=== PATIENT | female | born 1965 | race Caucasian/White ===

== ENCOUNTER 2017-03-22 14:49 | Emergency (ER) | payer BC ==
[2017-03-22 15:40] VITALS: BP 143/72
--- NOTE | 2017-03-22 15:41 | UC ---
Allergic Reaction HPI - HPI Summary HPI Summary: Noticed itchy rash first 10 days ago, started very mild but quickly worsened over 48 hours and went to [facility] 8 days ago with full-body urticaria. Was given 125mg solumedrol, 2 weeks of famotidine, and a pred taper (60, 60, 60, 40 , 40, 40, 20, 20, 20). had full relief for several days, but today symptoms recurred in a full-blown manner. Feels "joint pain" in hands, wrists, and arms to the shoulder, as well as feet and ankles. Mild ST but denies cough, wheezing , fainting, vomiting, or chest pain. No recent illness, no new medications that predated the rash, no new animals, no hx of hives. About 2 months ago did notice small itchy patch of skin that had raised bumps (per were NOT "something you could pop") on L posterior upper rib cage. Pt tried treating it with OTC HCTZ s relief, but area resolved completely with PO steroids. 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 - History of Current Complaint Chief Complaint: [place] Stated Complaint: RASHES OR HIVES,SORE THROAT Time Seen by Provider: 03/22/17 14:55 Hx Obtained From: Patient ?: No Onset/Duration: Gradual Onset, Lasting Hours Severity Initially: Mild Severity Currently: Moderate Location: Diffuse Character: Swelling - bottoms of feet, eyelids, Hives Aggrevating Factor(s): Heat Alleviating Factor(s): Nothing Associated Signs And Symptoms: Positive: Rash. Negative: Chest Pain, Cough Wheezing, Diaphoresis, Hoarseness, Lightheadedness, Syncope, Throat Tightening - Related Hx Possible Reaction To: Unknown - Allergies/Home Medications Allergies/Adverse Reactions: Allergies Allergy/AdvReac Type Severity Reaction Status Date / Time Erythromycin Allergy GI Upset Verified 03/14/17 09:49 Penicillins Allergy Rash Verified 03/14/17 09:49 PMH/Surg Hx/FS Hx/Imm Hx Previously Healthy: Yes - Surgical History Surgical History: Yes Surgery Procedure, Year, and Place: tubal ligation - Family History Known Family History: Negative: Hypertension - Social History Occupation: Employed Full-time Lives: With Family Alcohol Use: None Substance Use Type: None Smoking Status (MU): Former Smoker When Did the Patient Quit Smoking/Using Tobacco: 1985 Review of Systems Constitutional: Negative Skin: Rash Eyes: Negative ENT: Negative Respiratory: Negative Cardiovascular: Negative Gastrointestinal: Negative Genitourinary: Negative Motor: Negative Neurovascular: Negative Musculoskeletal: Arthralgia - arms and feet Neurological: Negative Psychological: Negative All Other Systems Reviewed And Are Negative: Yes Physical Exam Triage Information Reviewed: Yes Appearance: Well-Appearing, No Pain Distress, Well-Nourished Vital Signs: Initial Vital Signs Temp 98.9 F 03/22/17 14:54 Pulse 89 03/22/17 14:54 Resp 18 03/22/17 14:54 BP 143/72 03/22/17 14:54 Pulse Ox 100 03/22/17 14:54 Vital Signs Reviewed: Yes Eye Exam: Normal Eyes: Positive: Conjunctiva Clear ENT: Positive: Normal ENT inspection, Pharynx normal - widely patent, TMs normal. Negative: Nasal drainage, Tonsillar swelling, Tonsillar exudate Dental Exam: Normal Neck exam: Normal Neck: Positive: Supple, Nontender, No Lymphadenopathy Respiratory Exam: Normal Respiratory: Positive: Chest non-tender, Lungs clear, Normal breath sounds, No respiratory distress, No accessory muscle use Cardiovascular Exam: Normal Cardiovascular: Positive: RRR, No Murmur Musculoskeletal Exam: Normal Musculoskeletal: Positive: Other: - no joint swelling noted Neurological Exam: Normal Neurological: Positive: Alert Psychological Exam: Normal Skin Exam: Other - diffuse urticaria on trunk, face, arms, legs, hands, and feet Allergic Reaction Course/Dx - Differential Dx/Diagnosis Provider Diagnoses: urticaria Discharge - Discharge Plan Condition: Stable Disposition: HOME Prescriptions: Cetirizine* [ZyrTEC 10 MG TAB*] 10 mg PO DAILY #30 tab Famotidine TAB* [Pepcid 20 MG TAB*] 20 mg PO DAILY #14 tab predniSONE TAB* [Deltasone TAB*] 10 mg PO DAILY #45 tab Patient Education Materials: General Allergic Reaction (ED) Referrals: Blade Castaneda MD [Primary Care Provider] - 4 Days Kalee Castle MD [Medical Doctor] - As Soon As Possible Jer Aldana MD [Medical Doctor] - As Soon As Possible Additional Instructions: Take the cetirizine in the morning and then take 25-50mg diphenhydramine in the evening. Take the famotidine daily. If you have severe symptoms or trouble breathing at any time, please go to the hospital for emergency care. I recommend you follow up with your primary care provider as well as an rate quoting operator (I have listed two here) as soon as you can get appointments.
== END 2017-03-22 15:41 | disposition home or self-care (01) ==
LOC: UCEAST 14:49
DX: L50.9 Urticaria, unspecified (principal)
CPT/HCPCS: 99212; G0463